=== PATIENT | male | born 1985 | race Caucasian/White ===

== ENCOUNTER → 2016-12-01 | Outpatient (CLI) | payer OTHER ==
[~2016-12-01] MED LIST: AUGM500T34 PO; LORT5TAB PO
--- NOTE | 2016-12-01 13:03 | REP ---
Clinical: Bilateral testicular pain. Technique: Rowell scale and color Doppler evaluation using linear and curved array transducer with color Doppler evaluation. Findings: The testicles and epididymi are relatively normal in contour, size, echogenicity, vascularity and overall appearance/contour. Incidental note is made of 2.0 mm and 2.7 mm right epididymal head cysts and 2.1 mm left epididymal cyst. There is no evidence for intratesticular mass lesion, infectious/inflammatory process, with torsion. No obvious hydroceles or varicoceles are identified. Right testicle measures 4.8 x 2.4 x 3.1 cm cm. Left testicle measures 4.7 x 2.8 x 3.0 cm cm. Impression: Essentially normal scrotal ultrasound. Small epididymal cysts. Signed by Nestor Lopez MD 12/01/2016 12:54 P
[2016-12-01 13:38] LABS: MEAN CORPUSCULAR HEMOGLOBIN 29.3 pg (27.0-33.0); MEAN CORPUSCULAR HGB CONC 33.4 g/dl (32.0-36.5); MEAN CORPUSCULAR VOLUME 87.8 fl (80.0-96.0); RED CELL DISTRIBUTION WIDTH 12.4 % (11.5-14.5); WHITE BLOOD COUNT 7.1 K/mm3 (4.0-10.0)
[2016-12-01 13:55] LABS: ANION GAP 10 MEQ/L (8-16); BLOOD UREA NITROGEN 19 MG/DL (7-18); CARBON DIOXIDE LEVEL 29 MEQ/L (21-32); CHLORIDE LEVEL 102 MEQ/L (98-107); CREATININE FOR GFR 0.98 MG/DL (0.70-1.30); GLOMERULAR FILTRATION RATE > 60.0 (>60); GLUCOSE, FASTING 99 MG/DL (70-105); POTASSIUM SERUM 4.4 MEQ/L (3.5-5.1); SODIUM LEVEL 141 MEQ/L (136-145)
== END ==
LOC: M LAB 12:06
PROVIDERS: ATTEND Family Medicine
DX: N50.819 Testicular pain, unspecified (principal)

== ENCOUNTER → 2016-12-05 | Outpatient (CLI) | payer OTHER ==
[~2016-12-05] MED LIST changes: +ISOVUE-370 76% 100ML VIAL (Q9967) As Ordered ONE
--- NOTE | 2016-12-06 08:20 | REP ---
Clinical: Testicular pain and lower extremity swelling. Technique: Axial contrast enhanced images from the lung bases to the pubic symphysis using 100 ml Isovue 370 intravenous contrast material with coronal and sagittal re-formations. Comparison: 06/29/2015. Findings: The lung bases demonstrate bilateral hilar adenopathy. Liver, spleen, pancreas, gallbladder, bilateral adrenal glands and kidneys are normal. The enteric system is without obstruction or acute inflammatory process with evidence for prior appendectomy. Pelvis demonstrates normal bladder and age appropriate prostate/seminal vesicles. No ascites. No intraperitoneal or retroperitoneal adenopathy. No free air. Vascular structures are normal. Surrounding musculoskeletal structures normal. Impression: 1. Visualized lung bases demonstrate bilateral hilar adenopathy concerning for underlying process including malignancy such as lymphoma. Chest CT and consultation is warranted. 2. Abdomen and pelvis is unremarkable and without acute process. 3. No retroperitoneal adenopathy, ascites or mass lesion. Signed by Nestor Lopez MD 12/06/2016 08:11 A
== END ==
LOC: M RAD 17:05
PROVIDERS: ATTEND Family Medicine
DX: N50.819 Testicular pain, unspecified (principal); M79.89 Other specified soft tissue disorders

== ENCOUNTER → 2016-12-06 | Outpatient (CLI) | payer OTHER ==
--- NOTE | 2016-12-06 12:43 | REP ---
CT of the chest with IV contrast: The patient has CT abdomen pelvis history then identified hilar adenopathy. Scan is performed with IV contrast from lung apices to the diaphragms. There is bulky bilateral hilar adenopathy. There is mediastinal paratracheal, subcarinal and aorticopulmonic window adenopathy. There is no axillary adenopathy. No supraclavicular or thoracic inlet adenopathy. There are no infiltrates or effusions. There are multiple lung nodules as follows: Right lung: Image 26, 9 mm. Image 32 of 9 mm. Image 34, 9 mm. Image 48, 5 mm. Image 49 of 6 mm. Image 54, 6 mm. Image 55, 11 mm. Image 55 of 5 mm. Image 56, 6 mm. Image 50, 86 mm. Image 62, 9 mm. Image 62, 6 mm. Image 66, 11 mm. Image 69, 9 mm Left lung: Image 25, 9 mm. Image 34, 17 mm. Image 37, 5 mm. Image 47, 13 mm. Image 57, 9 mm. Image 67, 5 mm. Image 68, 8 mm. The thoracic aorta is unremarkable. Cardiac size normal. There is no pericardial effusion. Impression: There is mediastinal adenopathy. There is bilateral hilar adenopathy. There are multiple bilateral lung nodules. Otherwise, negative CT study of the chest. Some diagnostic considerations are lymphoma, sarcoidosis, and metastatic disease. Consider PET / CT scan for follow up. Signed by Joni High MD 12/06/2016 12:34 P
== END ==
LOC: M RAD 11:32
PROVIDERS: ATTEND Family Medicine
DX: R59.0 Localized enlarged lymph nodes (principal)

== ENCOUNTER → 2016-12-07 | Outpatient (REF) | payer OTHER ==
[~2016-12-07] MED LIST changes: -ISOVUE-370 76% 100ML VIAL (Q9967) As Ordered ONE
[2016-12-07 18:47] LABS: ALBUMIN 4.2 GM/DL (3.2-5.2); ALBUMIN/GLOBULIN RATIO 1.02 (1.00-1.93); ALKALINE PHOSPHATASE 116 U/L (45-117); ALT/SGPT 63 U/L (12-78); AST/SGOT 23 U/L (15-37); BILIRUBIN,DIRECT < 0.1 MG/DL (0.0-0.2); BILIRUBIN,TOTAL 0.2 MG/DL (0.2-1.0); CREATININE FOR GFR 0.96 MG/DL (0.70-1.30); GLOMERULAR FILTRATION RATE > 60.0 (>60); TOTAL PROTEIN 8.3 GM/DL (6.4-8.2)
[2016-12-07 18:54] LABS: BASO % 0.5 % (0.0-1.0); EOS # 0.3 K/mm3 (0.0-0.50); EOS % 7.2 % (0.0-3.0); LARGE UNSTAINED CELL # 0.1 K/mm3 (0.0-0.4); LARGE UNSTAINED CELL % 2.3 % (0.0-4.0); LYMPH # 0.9 K/mm3 (1.5-4.5); LYMPH % 20.3 % (24.0-44.0); MEAN CORPUSCULAR HGB CONC 33.6 g/dl (32.0-36.5); MEAN CORPUSCULAR VOLUME 86.3 fl (80.0-96.0); MONO # 0.4 K/mm3 (0.0-0.8); MONO % 9.3 % (0.0-5.0); NEUTROPHILS # 2.7 K/mm3 (1.8-7.7); NEUTROPHILS % 60.4 % (36.0-66.0); PLATELET COUNT, AUTOMATED 368 k/mm3 (150-450); RED CELL DISTRIBUTION WIDTH 12.4 % (11.5-14.5); WHITE BLOOD COUNT 4.5 K/mm3 (4.0-10.0)
[2016-12-07 19:20] LABS: ERYTHROCYTE SEDIMENTATION RATE 9 mm/hr (0-15)
== END ==
LOC: M LAB REF 17:18
PROVIDERS: ATTEND Internal Medicine Pulmonary Disease
DX: R91.8 Other nonspecific abnormal finding of lung field (principal)

== ENCOUNTER → 2017-01-26 | Outpatient (CLI) | payer OTHER ==
[2017-01-26 13:31] LABS: ANION GAP 10 MEQ/L (8-16); BLOOD UREA NITROGEN 19 MG/DL (7-18); CALCIUM LEVEL 9.5 MG/DL (8.5-10.1); CARBON DIOXIDE LEVEL 24 MEQ/L (21-32); CHLORIDE LEVEL 105 MEQ/L (98-107); CREATININE FOR GFR 1.13 MG/DL (0.70-1.30); GLOMERULAR FILTRATION RATE > 60.0 (>60); GLUCOSE, FASTING 114 MG/DL (70-105); POTASSIUM SERUM 4.2 MEQ/L (3.5-5.1); SODIUM LEVEL 139 MEQ/L (136-145)
== END ==
LOC: M LAB 12:15
PROVIDERS: ATTEND Family Medicine
DX: R79.89 Other specified abnormal findings of blood chemistry (principal)

== ENCOUNTER → 2017-03-13 | Outpatient (CLI) | payer OTHER ==
--- NOTE | 2017-03-13 21:14 | REP ---
Clinical: Bilateral groin/inguinal pain. Technique: Real time mcghee scale ultrasound examination using linear high frequency transducer. Findings: Directed ultrasound examination to the right groin demonstrates normal soft tissues and no evidence for inguinal hernia. Incidental note is made of a right inguinal lymph node measuring 9.5 x 4.7 x 7.3 mm. Directed ultrasound examination of the left groin demonstrates soft tissue adjacent to the inguinal ring which appears to be muscular by a striated appearance. No definite inguinal hernia is appreciated. A left inguinal lymph node is identified measuring 8.2 x 7.1 x 5.6 mm. Impression: 1. No definite inguinal hernia appreciated. 2. Striated soft tissue adjacent/posterior to the left inguinal ring appears to be muscular in nature. No definite associated hernia. Correlation with physical examination is recommended. Comparison was made to recent CT which suggested a mildly asymmetric but otherwise normal area of soft tissue and musculature at the area in question. Signed by Nestor Lopez MD 03/13/2017 09:06 P
== END ==
LOC: M RAD 10:34
PROVIDERS: ATTEND Internal Medicine Rheumatology
DX: R10.2 Pelvic and perineal pain (principal)

== ENCOUNTER → 2017-04-05 | Outpatient (CLI) | payer OTHER ==
--- NOTE | 2017-04-05 17:26 | REP ---
MRI PELVIS WITHOUT CONTRAST: Multiple sequences obtained in the axial, coronal and sagittal planes. Visualized osseous structures demonstrate normal marrow signal. There is no bone marrow edema or occult fracture. There is no evidence of avascular necrosis of the femoral heads. No joint effusion is seen in either hip. Sacroiliac joints are unremarkable with no sacroiliitis. Visualized intrapelvic structures demonstrate no mass or adenopathy. There is no free fluid in the pelvis. The superficial muscular structures are unremarkable with no abnormal signal. IMPRESSION: Negative MRI pelvis. Signed by Joni Rowell MD 04/06/2017 03:17 P
== END ==
LOC: M RAD 14:16
PROVIDERS: ATTEND Internal Medicine Rheumatology
DX: R10.2 Pelvic and perineal pain (principal)

== ENCOUNTER → 2017-04-16 | Outpatient (REF) | payer OTHER | LOC: M SMT 13:00 | PROVIDERS: ATTEND Nurse Practitioner Women's Health | DX: R10.30 Lower abdominal pain, unspecified (principal); N50.812 Left testicular pain ==

== ENCOUNTER → 2017-06-13 | Outpatient (CLI) | payer OTHER ==
--- NOTE | 2017-06-13 11:45 | REP ---
MR BRAIN WITHOUT CONTRAST: HISTORY: Chronic headache. There are no areas of abnormal signal intensity of the brain. There is no intraparenchymal hemorrhage, infarct, mass or midline shift. The ventricular system is normal in appearance. There is no extracerebral collection. The sinuses are clear. IMPRESSION: There is no intracranial lesion. Signed by Mendez Rodriguez MD 06/13/2017 12:00 P
== END ==
LOC: M RAD 10:23
PROVIDERS: ATTEND Family Medicine
DX: R51 Headache (principal)

== ENCOUNTER → 2017-09-05 | Outpatient (REF) | payer OTHER ==
[2017-09-05 14:10] LABS: BASO % 0.7 % (0.0-1.0); EOS # 0.3 10^3/uL (0.0-0.50); IMMATURE GRANULOCYTE % 0.2 % (0-0); LYMPH % 23.4 % (24.0-44.0); MEAN CORPUSCULAR HGB CONC 33.3 g/dl (32.0-36.5); MEAN CORPUSCULAR VOLUME 87.1 fl (80.0-96.0); MONO # 0.6 10^3/uL (0.0-0.8); MONO % 13.3 % (0.0-5.0); NEUTROPHILS # 2.4 10^3/uL (1.8-7.7); NEUTROPHILS % 55.4 % (36.0-66.0); PLATELET COUNT, AUTOMATED 317 10^3/uL (150-450); RED CELL DISTRIBUTION WIDTH 12.8 % (11.5-14.5); WHITE BLOOD COUNT 4.3 10^3/uL (4.0-10.0)
[2017-09-05 14:34] LABS: VITAMIN B12 LEVEL 462 PG/ML
[2017-09-05 14:35] LABS: ALBUMIN 4.4 GM/DL (3.2-5.2); ALBUMIN/GLOBULIN RATIO 1.63 (1.00-1.93); ALKALINE PHOSPHATASE 61 U/L (45-117); ALT/SGPT 62 U/L (12-78); ANION GAP 5 MEQ/L (8-16); AST/SGOT 23 U/L (7-37); BILIRUBIN,TOTAL 0.3 MG/DL (0.2-1.0); BLOOD UREA NITROGEN 22 MG/DL (7-18); CARBON DIOXIDE LEVEL 28 MEQ/L (21-32); CHLORIDE LEVEL 104 MEQ/L (98-107); CREATININE FOR GFR 0.88 MG/DL (0.70-1.30); FOLATE 13.3 NG/ML; GLOMERULAR FILTRATION RATE > 60.0 (>60); GLUCOSE, FASTING 92 MG/DL (70-105); POTASSIUM SERUM 4.3 MEQ/L (3.5-5.1); SODIUM LEVEL 137 MEQ/L (136-145); TOTAL PROTEIN 7.1 GM/DL (6.4-8.2)
[2017-09-05 14:37] LABS: ERYTHROCYTE SEDIMENTATION RATE 3 mm/hr (0-15)
[2017-09-11 00:06] LABS: VITAMIN E LEVEL 13.4 mg/L (5.3-17.5)
== END ==
LOC: M LABNEURO 13:30
PROVIDERS: ATTEND Psychiatry & Neurology Neurology
DX: R51 Headache (principal)

== ENCOUNTER 2017-11-10 13:40 | Emergency (ER) | payer OTHER ==
[2017-11-10 14:16] LABS: BASO % 0.5 % (0.0-1.0); EOS # 0.2 10^3/uL (0.0-0.50); EOS % 2.6 % (0.0-3.0); HEMATOCRIT 45.7 % (42.0-52.0); HEMOGLOBIN 15.4 g/dl (14.0-18.0); IMMATURE GRANULOCYTE % 0.2 % (0-0); LYMPH # 1.5 10^3/uL (1.5-4.5); LYMPH % 23.9 % (24.0-44.0); MEAN CORPUSCULAR HEMOGLOBIN 28.6 pg (27.0-33.0); MEAN CORPUSCULAR HGB CONC 33.7 g/dl (32.0-36.5); MEAN CORPUSCULAR VOLUME 84.9 fl (80.0-96.0); MONO # 0.5 10^3/uL (0.0-0.8); MONO % 8.5 % (0.0-5.0); NEUTROPHILS % 64.3 % (36.0-66.0); PLATELET COUNT, AUTOMATED 323 10^3/uL (150-450); RED BLOOD COUNT 5.38 10^6/uL (4.30-6.10); RED CELL DISTRIBUTION WIDTH 14.1 % (11.5-14.5); WHITE BLOOD COUNT 6.2 10^3/uL (4.0-10.0)
[2017-11-10] MEDS: KETOROLAC 30 MG/ML VIAL (J1885) IV (14:19)
[2017-11-10] MEDS: ONDANSETRON 4MG/2ML VIAL (J2405) IV (14:19)
[2017-11-10 14:40] LABS: ANION GAP 8 MEQ/L (8-16); BLOOD UREA NITROGEN 21 MG/DL (7-18); CALCIUM LEVEL 8.7 MG/DL (8.5-10.1); CARBON DIOXIDE LEVEL 23 MEQ/L (21-32); CHLORIDE LEVEL 113 MEQ/L (98-107); CREATININE FOR GFR 1.37 MG/DL (0.70-1.30); GLOMERULAR FILTRATION RATE > 60.0 (>60); GLUCOSE, FASTING 113 MG/DL (70-100); POTASSIUM SERUM 4.2 MEQ/L (3.5-5.1); SODIUM LEVEL 144 MEQ/L (136-145)
[2017-11-10] MEDS: METOCLOPRAMIDE INJ 10MG/2ML VIAL (J2765) IV (15:05)
[2017-11-10 15:07] LABS: KETONE, URINE AUTO RFX NEGATIVE (NEGATIVE); LEUKOCYTE ESTERASE UR AUTO RFX NEGATIVE (NEGATIVE); NITRITE, URINE AUTO RFX NEGATIVE (NEGATIVE); RBC, URINE AUTO RFX TNTC /HPF (0-3); SPECIFIC GRAVITY UR AUTO RFX 1.014 (1.002-1.035); SQUAM EPITHELIAL CELL UR AURFX 0 /HPF (0-6); WBC, URINE AUTO RFX 0 /HPF (0-3)
[2017-11-10] MEDS: NS 1,000 ML IV (15:23)
[2017-11-10] MEDS: TAMSULOSIN 0.4 MG CAP PO (15:27)
== END 2017-11-10 16:23 | disposition home or self-care (01) ==
LOC: M ED 13:40
DX: N20.1 Calculus of ureter (principal); Z79.52 Long term (current) use of systemic steroids; Z79.899 Other long term (current) drug therapy; Z87.442 Personal history of urinary calculi; Z87.09 Personal history of other diseases of the respiratory system; Z98.890 Other specified postprocedural states; Z87.891 Personal history of nicotine dependence
CPT/HCPCS: J2405

== ENCOUNTER 2018-01-30 19:20 | Emergency (ER) | payer OTHER ==
[2018-01-30] MEDS: NS 500 ML IV (20:15)
[2018-01-30] MEDS: MORPHINE 10 MG/ML 1ML VIAL (J2270) IV ×3 (20:34→23:00)
[2018-01-30 20:40] LABS: BASO % 0.3 % (0.0-1.0); EOS # 0.1 10^3/uL (0.0-0.50); EOS % 1.3 % (0.0-3.0); HEMATOCRIT 40.9 % (42.0-52.0); HEMOGLOBIN 14.1 g/dl (13.5-17.5); IMMATURE GRANULOCYTE % 0.3 % (0-3.0); LYMPH # 1.2 10^3/uL (1.5-4.5); LYMPH % 12.8 % (24.0-44.0); MEAN CORPUSCULAR HEMOGLOBIN 28.5 pg (27.0-33.0); MEAN CORPUSCULAR HGB CONC 34.5 g/dl (32.0-36.5); MEAN CORPUSCULAR VOLUME 82.8 fl (80.0-96.0); MONO # 0.9 10^3/uL (0.0-0.8); MONO % 9.1 % (0.0-5.0); NEUTROPHILS # 7.1 10^3/uL (1.8-7.7); NEUTROPHILS % 76.2 % (36.0-66.0); PLATELET COUNT, AUTOMATED 278 10^3/uL (150-450); RED BLOOD COUNT 4.94 10^6/uL (4.30-6.10); RED CELL DISTRIBUTION WIDTH 13.4 % (11.5-14.5); WHITE BLOOD COUNT 9.3 10^3/uL (4.0-10.0)
[2018-01-30 20:52] LABS: INR 1.15; PROTHROMBIN TIME 14.9 SECONDS (12.4-14.5)
[2018-01-30 20:53] LABS: PARTIAL THROMBOPLASTIN TIME 28.8 SECONDS (26.8-37.9)
[2018-01-30 21:03] LABS: ANION GAP 7 MEQ/L (8-16); BLOOD UREA NITROGEN 21 MG/DL (7-18); CALCIUM LEVEL 8.8 MG/DL (8.5-10.1); CARBON DIOXIDE LEVEL 24 MEQ/L (21-32); CHLORIDE LEVEL 110 MEQ/L (98-107); CREATININE FOR GFR 1.26 MG/DL (0.70-1.30); GLOMERULAR FILTRATION RATE > 60.0 (>60); GLUCOSE, FASTING 85 MG/DL (70-100); POTASSIUM SERUM 3.5 MEQ/L (3.5-5.1); SODIUM LEVEL 141 MEQ/L (136-145)
[2018-01-30] MEDS ORDERED: ISOVUE-370 76% 100ML VIAL (Q9967) As Ordered (21:15)
[2018-01-30] MEDS: NORCO 5/325MG TABLET (BULK FOR ED) PO (23:00)
== END 2018-01-30 23:26 | disposition home or self-care (01) ==
LOC: M ED 19:20
DX: S42.115A Nondisplaced fracture of body of scapula, left shoulder, initial encounter for closed fracture (principal); S00.83XA Contusion of other part of head, initial encounter; W11.XXXA Fall on and from ladder, initial encounter; Y92.410 Unspecified street and highway as the place of occurrence of the external cause; D86.9 Sarcoidosis, unspecified; K21.9 Gastro-esophageal reflux disease without esophagitis; Z79.899 Other long term (current) drug therapy
CPT/HCPCS: Q9967

== ENCOUNTER → 2018-05-01 | Outpatient (REF) | payer OTHER ==
[2018-05-01 13:39] LABS: TOTAL PROTEIN 7.7 GM/DL (6.4-8.2)
[2018-05-02 11:51] LABS: ALBUMIN 4.74 GM/DL (3.29-5.55); ALBUMIN % 61.6 % (55.8-66.1); ALPHA-1-GLOBULIN % 4.4 % (2.9-4.9); ALPHA-1-GLOBULINS 0.34 GM/DL (0.17-0.41); ALPHA-2-GLOBULINS 0.79 GM/DL (0.42-0.99); ALPHA-2-GLOBULINS % 10.2 % (7.1-11.8); BETA-1-GLOBULINS 0.47 GM/DL (0.28-0.60); BETA-1-GLOBULINS % 6.1 % (4.7-7.2); BETA-2-GLOBULINS 0.45 GM/DL (0.19-0.55); BETA-2-GLOBULINS % 5.8 % (3.2-6.5); GAMMA GLOBULIN % 11.9 % (11.1-18.8); GAMMA GLOBULINS 0.92 GM/DL (0.65-1.58)
[2018-05-06 14:14] LABS: CERULOPLASMIN 22.1 mg/dL (16.0-31.0); COPPER PLASMA 97 ug/dL (72-166); MERCURY LEVEL None Detected ug/L (0.0-14.9)
[2018-05-06 14:14] LABS: LEAD BLOOD ADULT <1 ug/dL (0-19)
== END ==
LOC: M LABNEURO 08:06
DX: G62.9 Polyneuropathy, unspecified (principal)
CPT/HCPCS: 82525

== ENCOUNTER → 2018-07-29 | Outpatient (CLI) | payer OTHER | LOC: M RAD 07:54 | DX: R94.5 Abnormal results of liver function studies (principal) | CPT/HCPCS: 76700 ==

== ENCOUNTER → 2018-09-03 | Outpatient (CLI) | payer OTHER ==
[2018-09-03 16:57] LABS: BASO # 0.1 10^3/uL (0.0-0.2); BASO % 0.8 % (0.0-1.0); EOS # 0.2 10^3/uL (0.0-0.50); EOS % 2.7 % (0.0-3.0); HEMATOCRIT 43.9 % (42.0-52.0); HEMOGLOBIN 14.5 g/dl (13.5-17.5); IMMATURE GRANULOCYTE % 0.2 % (0-3.0); LYMPH # 1.9 10^3/uL (1.5-4.5); LYMPH % 31.3 % (24.0-44.0); MEAN CORPUSCULAR HEMOGLOBIN 29.8 pg (27.0-33.0); MEAN CORPUSCULAR VOLUME 90.1 fl (80.0-96.0); MONO # 0.7 10^3/uL (0.0-0.8); MONO % 11.2 % (0.0-5.0); NEUTROPHILS # 3.2 10^3/uL (1.8-7.7); NEUTROPHILS % 53.8 % (36.0-66.0); PLATELET COUNT, AUTOMATED 300 10^3/uL (150-450); RED BLOOD COUNT 4.87 10^6/uL (4.30-6.10); RED CELL DISTRIBUTION WIDTH 12.6 % (11.5-14.5)
[2018-09-03 17:02] LABS: ALBUMIN 4.1 GM/DL (3.2-5.2); ALBUMIN/GLOBULIN RATIO 1.32 (1.00-1.93); ALKALINE PHOSPHATASE 87 U/L (45-117); ALT/SGPT 53 U/L (12-78); ANION GAP 6 MEQ/L (8-16); AST/SGOT 21 U/L (7-37); BILIRUBIN,DIRECT < 0.1 MG/DL (0.0-0.2); BILIRUBIN,TOTAL 0.2 MG/DL (0.2-1.0); BLOOD UREA NITROGEN 16 MG/DL (7-18); CALCIUM LEVEL 8.9 MG/DL (8.5-10.1); CARBON DIOXIDE LEVEL 30 MEQ/L (21-32); CHLORIDE LEVEL 105 MEQ/L (98-107); CREATININE FOR GFR 1.17 MG/DL (0.70-1.30); GLOMERULAR FILTRATION RATE > 60.0 (>60); GLUCOSE, FASTING 96 MG/DL (70-100); IMMUNOGLOBULIN A 237 MG/DL (70-400); SODIUM LEVEL 141 MEQ/L (136-145); TOTAL PROTEIN 7.2 GM/DL (6.4-8.2)
[2018-09-07 00:24] LABS: ANTINUCLEAR ANTIBODIES DIRECT Negative (Negative); ENDOMYSIAL ABY IgA Negative (Negative); TISSUE TRANSGLUTAMINASE IgA <2 U/mL (0-3); TISSUE TRANSGLUTAMINASE IgG <2 U/mL (0-5)
[2018-09-11 12:42] LABS: FIBROSPECT1 SEE SEPARATE REPORT
== END ==
LOC: M WUC 13:50
DX: R93.3 Abnormal findings on diagnostic imaging of other parts of digestive tract (principal)
CPT/HCPCS: 82248

== ENCOUNTER → 2018-09-13 | Outpatient (CLI) | payer OTHER ==
[~2018-09-13] MED LIST changes: -AUGM500T34 PO; +GASTROGRAFIN SOLUTION 30ML (Q9963) As Ordered; +ISOVUE-370 76% 100ML VIAL (Q9967) As Ordered; -LORT5TAB PO
== END ==
LOC: M RAD 08:44
DX: R93.3 Abnormal findings on diagnostic imaging of other parts of digestive tract (principal); R16.1 Splenomegaly, not elsewhere classified
CPT/HCPCS: Q9963

== ENCOUNTER → 2019-07-14 | Outpatient (REF) | payer OTHER ==
[~2019-07-14] MED LIST changes: +AMIT75TA PO; +AUGM500T34 PO; +FLOM0.4C39 PO; -GASTROGRAFIN SOLUTION 30ML (Q9963) As Ordered; +HYDR200T3; -ISOVUE-370 76% 100ML VIAL (Q9967) As Ordered; +LORT5TAB PO; +NAPR-837 PO; +OMEP1CAP73 PO; +PRED5PAK PO; +TOPA50TA8 PO; +VICO5TAB17 PO; +ZOFR4TAB14 PO
[2019-07-14 12:14] LABS: ALT/SGPT 55 U/L (12-78); BILIRUBIN,TOTAL 0.3 MG/DL (0.2-1.0); BLOOD UREA NITROGEN 16 MG/DL (7-18); CALCIUM LEVEL 9.1 MG/DL (8.5-10.1); CARBON DIOXIDE LEVEL 31 MEQ/L (21-32); CHLORIDE LEVEL 103 MEQ/L (98-107); CREATININE FOR GFR 1.13 MG/DL (0.70-1.30); GLOMERULAR FILTRATION RATE > 60.0 (>60); GLUCOSE, FASTING 95 MG/DL (70-100); POTASSIUM SERUM 4.1 MEQ/L (3.5-5.1); SODIUM LEVEL 139 MEQ/L (136-145); TOTAL PROTEIN 7.3 GM/DL (6.4-8.2)
== END ==
LOC: M LABDRAWC 11:25
PROVIDERS: ATTEND Physician Assistant
DX: D86.0 Sarcoidosis of lung (principal)

== ENCOUNTER 2021-10-13 15:13 | Inpatient (IN) | payer OTHER ==
[~2021-10-13] VITALS: Ht 180.3 cm; Wt 93.2 kg
[~2021-10-13 15:13] MED LIST changes: +dexameTHASONE 4 MG/ML 1ML VIAL (J1100 PER 1MG) IV SCH
[2021-10-13] MEDS ORDERED: ONDANSETRON 4MG/2ML VIAL IV ONE (15:40)
[2021-10-13] MEDS ORDERED: GI COCKTAIL 50ML BTL(HYOSCYAMINE/MAALOX/LIDOCAINE VISCOUS)(1:3:1) PO ONE (15:40)
[2021-10-13] MEDS ORDERED: MORPHINE 2 MG/ML 1ML VIAL (J2270) IV ONE (15:40)
--- NOTE | 2021-10-13 15:59 | REP ---
INDICATION: Coronavirus workup. COMPARISON: None. TECHNIQUE: Portable FINDINGS: The technique utilized in obtaining the radiograph has magnified the cardiac silhouette and accentuated the interstitial markings. There is a focal opacity in the right upper lobe region. The heart is not enlarged. The pleural angles are sharp. The osseous structures are within normal limits. IMPRESSION: Possible developing right upper lobe pneumonia. Follow-up is recommended. <Electronically signed by Darryl Mckeon > 10/13/21 1906
[2021-10-13 16:17] LABS: BASO % 0.3 % (0.0-1.0); EOS % 1.4 % (0.0-3.0); HEMATOCRIT 46.8 % (42.0-52.0); HEMOGLOBIN 15.9 g/dl (13.5-17.5); LYMPH # 0.7 10^3/uL (1.5-5.0); LYMPH % 24.1 % (24.0-44.0); MEAN CORPUSCULAR HEMOGLOBIN 29.3 pg (27.0-33.0); MEAN CORPUSCULAR VOLUME 86.2 fl (80.0-96.0); MONO # 0.3 10^3/uL (0.0-0.8); MONO % 11.5 % (2.0-8.0); NEUTROPHILS # 1.8 10^3/uL (1.5-8.5); NEUTROPHILS % 62.4 % (36.0-66.0); PLATELET COUNT, AUTOMATED 211 10^3/uL (150-450); RED BLOOD COUNT 5.43 10^6/uL (4.30-6.10); WHITE BLOOD COUNT 2.9 10^3/uL (4.0-10.0)
[2021-10-13 16:49] LABS: ALBUMIN 4.1 GM/DL (3.2-5.2); ALT/SGPT 140 U/L (12-78); BILIRUBIN,TOTAL 0.2 MG/DL (0.2-1.0); BLOOD UREA NITROGEN 14 MG/DL (7-18); C REACTIVE PROTEIN QUANTITATIV 0.82 MG/DL (0.00-0.30); CALCIUM LEVEL 9.2 MG/DL (8.5-10.1); CARBON DIOXIDE LEVEL 29 MEQ/L (21-32); CHLORIDE LEVEL 100 MEQ/L (98-107); CREATININE FOR GFR 1.01 MG/DL (0.70-1.30); GLOMERULAR FILTRATION RATE > 60.0 (>60); GLUCOSE, FASTING 122 MG/DL (70-100); POTASSIUM SERUM 5.1 MEQ/L (3.5-5.1); SODIUM LEVEL 135 MEQ/L (136-145); TOTAL PROTEIN 8.1 GM/DL (6.4-8.2)
[2021-10-13] MEDS ORDERED: ISOVUE-370 76% 100ML VIAL As Ordered ONE (16:53)
--- NOTE | 2021-10-13 18:20 | ECGEPIP ---
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
--- NOTE | 2021-10-13 18:39 | REPVR ---
PROCEDURE INFORMATION: Exam: CTA Chest With Contrast Exam date and time: 10/13/2021 5:12 PM Age: 36 years old Clinical indication: Shortness of breath; Additional info: SOB RO pe TECHNIQUE: Imaging protocol: Computed tomographic angiography of the chest with contrast. 3D rendering (Not supervised by radiologist): MIP and/or 3D reconstructed images were created by the technologist. Radiation optimization: All CT scans at this facility use at least one of these dose optimization techniques: automated exposure control; mA and/or kV adjustment per patient size (includes targeted exams where dose is matched to clinical indication); or iterative reconstruction. Contrast material: ISOVUE 370; Contrast volume: 75 ml; Contrast route: INTRAVENOUS (IV); COMPARISON: CT Chest with contrast 01/30/2018 9:44 PM FINDINGS: Pulmonary arteries: There is opacification of the pulmonary arteries with no evidence of pulmonary embolus. Aorta: There is opacification of the aorta which appears intact. Trachea: Normal appearing trachea. Lungs: There is a 7.5 x 3.6 triangular area of interstitial and alveolar infiltrate right mid lung field abutting the pleural surface. There are scattered small areas of infiltrate at the right apical portion of the lung. There is a 3.5 cm x 3.6 cm wedge-shaped area of interstitial and alveolar infiltrate at the left upper lung abutting the pleural surface. There are small round areas of infiltrate in the left lung especially the left lower lung field. The This is consistent with areas of pneumonic infiltrate including COVID-19 pneumonia. Pleural spaces: There is no evidence of pneumothorax or pleural effusion. Heart: The heart is top-normal in size and there is no pericardial effusion. Lymph nodes: To 1.3 cm probable lymph node in the right infrahilar region. Lymphoid tissue is noted in the hilar regions bilaterally. Small lymph nodes are in the parahilar regions bilaterally. Bones/joints: There is no evidence of fracture. IMPRESSION: Areas of interstitial and alveolar infiltrate throughout both lungs consistent with pneumonic infiltrates including COVID-19 pneumonia. It would be important to have follow-up films to see that these areas resolve and to exclude underlying nodules Enlarged hilar lymph nodes. Electronically signed by: Matt Rogers On 10/13/2021 18:38:25 PM
--- NOTE | 2021-10-13 19:34 | ED PDOC ---
Post-Departure Follow-Up cta chest faxed to dr kingsley for fu Eliseo Arita MD Oct 13, 2021 19:34
[2021-10-13] MEDS ORDERED: MOM 30ML SUSPENSION UDC PO PRN (20:05)
[2021-10-13] MEDS ORDERED: MAALOX 30 ML SUSP *UDC PO PRN (20:05)
[2021-10-13] MEDS ORDERED: ACETAMINOPHEN TAB 650MG DOSE (2X325MG) PO PRN (20:05)
[2021-10-13] MEDS ORDERED: NS 1,000 ML IV SCH ×2 (20:30→21:00)
--- NOTE | 2021-10-13 20:40 | HPEPDOC ---
General Date of Admission Date of Service: Oct 13, 2021 Attending Physician: ROSA MAHER MD Chief Complaint The patient is a 36-year-old male admitted with a reason for visit of Chest Pain. Source: Patient Exam Limitations: No limitations Timing/Duration: Other (Since last 5 days) Severity: Moderate Associated Symptoms: Other (Chest pain cough) History of Present Illness 36 years old white male with past medical history of sarcoidosis, quit smoking about few months ago his had become positive for Covid on Sunday but he was unable to get himself tested secondary to [place] hence came in today with chief complaints of sudden onset of pressure-like chest pain midsternal nonradiating not associated with any the symptoms such as shortness of breath nausea vomiting not relieved with any medication or position not exacerbated by food coughing etc. On further work-up patient found to have Covid positive status with bilateral interstitial pneumonia. Note: Patient is not vaccinated for COVID-19 Home Medications Scheduled Omeprazole (Omeprazole) 20 Mg Cap, 2 CAP PO DAILY, (Reported) Allergies Coded Allergies: No Known Allergies (Verified Allergy, Unknown, 10/13/21) Past Medical History Medical History Sarcoidosis Surgical History None Family History Family history reviewed noncontributory Social History * Smoker: other (Quit smoking 4 months ago) Alcohol: Denies Drugs: denies A-FIB/CHADSVASC A-FIB History Current/History of A-Fib/PAF?: No Review of Systems Constitutional: Denies: Chills, Fever, Malaise, Night Sweats, Weakness, Fatigue, Weight Loss, Lethargy, Other Eyes: Denies: Pain, Vision change, Conjunctivae inflammation, Eyelid inflammation, Redness, Other Skin: Denies: Rash, Lesions, Jaundice, Bruising, Itching, Dry, Breakdown, Nail Changes, Other Pulmonary: Denies: Dyspnea, Cough, Pleuritic Chest Pain, Other Symptoms Cardiovascular: Reports: Chest Pain Gastrointestinal: Denies: Nausea, Vomiting, Abdominal Pain, Diarrhea, Constipation, Melena, Hematochezia, Other Symptoms Genitourinary: Denies: Dysuria, Frequency, Incontinence, Hematuria, Retention, Other Symptoms Hematologic: Denies: Bruising, Bleeding Excessively, Petecchia, Purpura, Enlarged Lymph Nodes, Other Hematologic Endocrine: Denies: Polydipsia, Polyphagia, Polyuria, Heat Intolerance, Cold Intolerance, Other Endocrine Sx Musculoskeletal: Denies: Neck Pain, Back Pain, Shoulder Pain, Arm Pain, Hand Pain, Leg Pain, Foot Pain, Joint Pain, Muscle Pain, Spasms, Other Symptoms Neurological: Denies: Weakness, Numbness, Incoordination, Change in speech, Confusion, Seizures, Other Symptoms Psych: Denies: Mood Normal, Anxiety, Depression, Memory Issues, Thoughts of Self Harm, Anger, Thoughts of Harming Other, Other Psych Physical Examination General Exam: Positive: Alert, Cooperative Eye Exam: Positive: Conjunctiva & lids normal ENT Exam: Positive: Atraumatic, Mucous membr. moist/pink Neck Exam: Positive: Supple Chest Exam: Positive: Other (Decreased breath sounds with bilateral crackles) Heart Exam: Positive: Rate Normal, Normal S1, Normal S2 Abdomen Exam: Positive: Normal bowel sounds, Soft Extremity Exam: Positive: Other (No clubbing sinus edema) Skin Exam: Positive: Nl turgor and temperature Neuro Exam: Positive: Normal Gait, Normal Speech Psych Exam: Positive: Mental status NL, Mood NL Vital Signs Vital Signs Date Time Temp Pulse Resp B/P (MAP) Pulse Ox O2 Delivery O2 Flow Rate FiO2 10/13/21 19:43 103 95 10/13/21 16:16 20 Room Air 10/13/21 15:29 123/80 (94) 10/13/21 15:13 98.3 Laboratory Data Labs 24H Laboratory Tests 2 10/13/21 15:47: Immature Granulocyte % (Auto) 0.3, Neutrophils (%) (Auto) 62.4, Lymphocytes (%) (Auto) 24.1, Monocytes (%) (Auto) 11.5H, Eosinophils (%) (Auto) 1.4, Basophils (%) (Auto) 0.3, Neutrophils # (Auto) 1.8, Lymphocytes # (Auto) 0.7L, Monocytes # (Auto) 0.3, Eosinophils # (Auto) 0.0, Basophils # (Auto) 0.0, Nucleated Red Blood Cells % (auto) 0.0, Anion Gap 6L, Glomerular Filtration Rate > 60.0, Calcium Level 9.2, Total Bilirubin 0.2, Aspartate Amino Transf (AST/SGOT) 76H, Alanine Aminotransferase (ALT/SGPT) 140H, Alkaline Phosphatase 112, C-Reactive Protein, Quantitative 0.82H, Total Protein 8.1, Albumin 4.1, Albumin/Globulin Ratio 1.0 10/13/21 15:48: Lactic Acid Level 2.2*H 10/13/21 15:55: POC Troponin I (Misc) 0.00 CBC/BMP Laboratory Tests 10/13/21 15:47 Microbiology Microbiology 10/13/21 Blood Culture, Received Pending 10/13/21 Blood Culture, Received Pending Assessment/Plan 36 years old white male with past medical history of sarcoidosis, quit smoking about few months ago his had become positive for Covid on Sunday but he was unable to get himself tested secondary to [place] hence came in today with chief complaints of sudden onset of pressure-like chest pain midsternal nonr adiating not associated with any the symptoms such as shortness of breath nausea vomiting not relieved with any medication or position not exacerbated by food coughing etc. On further work-up patient found to have Covid positive status with bilateral interstitial pneumonia. Note: Patient is not vaccinated for COVID-19 EKG shows normal sinus rhythm left axis deviation nonspecific ST-T changes Chest x-ray shows right upper lobe pneumonia CT of chest shows bilateral interstitial pneumonia WBC count 2.9 hemoglobin 15.9 hematocrit 46.8 platelets 211 Electrolytes are normal with BUN of 14 creatinine 1.01 LFTs are slightly elevated AST 71 ALT 140, lactic acid 2.2 CRP 0.62 Vital signs on admission temperature 98.3, pulse 86 respiratory rate 20 blood pressure 138/70 pulse ox 100% on room air #1 Covid positive status with bilateral Covid pneumonia, rule out secondary bacterial community-acquired pneumonia #2 history of pulmonary sarcoidosis Admit patient to Med[facility] floor with Contac and droplet isolation IV fluid normal saline 100 cc/h Start remdesivir and Versed neb as patient has a normal renal functions Start dexamethasone 6 mg IV Start Rocephin 1 g IV daily and Zithromax 5 mg p.o. daily Pro calcitonin has been ordered in a.m. labs also have been ordered Oxygen support to keep pulse ox more than 94% Depending on patient response to above therapy hopefully can be discharged soon DVT prophylaxis with Lovenox Diet is regular Activity as tolerated Problems (1) Pneumonia due to COVID-19 virus Status: Acute Plan / VTE VTE Prophylaxis Ordered?: Yes ROSA MAHER MD Oct 13, 2021 20:40
[2021-10-13] MEDS ORDERED: ALBUTEROL 90 MCG/ACT 8GM HFA INHALER INH PRN (20:55)
[2021-10-13] MEDS ORDERED: AZITHROMYCIN 250MG TABLET PO SCH (21:00)
[2021-10-13] MEDS ORDERED: ENOXAPARIN 40MG/0.4ML SYRINGE (J1650 PER 10MG) SC SCH (21:00)
[2021-10-13] MEDS ORDERED: cefTRIAXone SOD 1 GM in D5W MINI-BAG PLUS 50 ML IV SCH (21:00)
[2021-10-13] MEDS: DOCUSATE SODIUM 100MG CAPSULE PO SCH (21:00)
[2021-10-13 21:08] LABS: BILIRUBIN,DIRECT < 0.1 MG/DL (0.0-0.2); FERRITIN 403 NG/ML (26-388); MAGNESIUM LEVEL 1.9 MG/DL (1.8-2.4); NT-PRO BNP 9 PG/ML (<125)
[2021-10-13 21:49] LABS: INR 1.03; PARTIAL THROMBOPLASTIN TIME 31.9 SECONDS (25.9-37.0); PROTHROMBIN TIME 13.9 SECONDS (12.7-14.5)
[2021-10-13 21:52] LABS: D-DIMER QUANT 331.91 ng/ml (<500)
[2021-10-13] MEDS ORDERED: REMDESIVIR 200 MG in NS 250 ML IV ONE (23:00)
[2021-10-14] MEDS ORDERED: SODIUM CHLORIDE 0.9% INJ 10 ML SYR IV ONE (01:00)
[2021-10-14 08:28] LABS: BASO % 0.4 % (0.0-1.0); EOS % 0.9 % (0.0-3.0); HEMATOCRIT 43.7 % (42.0-52.0); HEMOGLOBIN 14.6 g/dl (13.5-17.5); LYMPH % 44.4 % (24.0-44.0); MEAN CORPUSCULAR HEMOGLOBIN 29.4 pg (27.0-33.0); MEAN CORPUSCULAR HGB CONC 33.4 g/dl (32.0-36.5); MEAN CORPUSCULAR VOLUME 88.1 fl (80.0-96.0); MONO # 0.4 10^3/uL (0.0-0.8); MONO % 15.1 % (2.0-8.0); NEUTROPHILS % 38.8 % (36.0-66.0); PLATELET COUNT, AUTOMATED 179 10^3/uL (150-450); RED BLOOD COUNT 4.96 10^6/uL (4.30-6.10); WHITE BLOOD COUNT 2.3 10^3/uL (4.0-10.0)
[2021-10-14] MEDS ORDERED: IBUPROFEN 600MG TAB PO ONE (08:30)
[2021-10-14 08:59] LABS: ALBUMIN 3.5 GM/DL (3.2-5.2); ALT/SGPT 186 U/L (12-78); BILIRUBIN,DIRECT < 0.1 MG/DL (0.0-0.2); BILIRUBIN,TOTAL 0.2 MG/DL (0.2-1.0); BLOOD UREA NITROGEN 15 MG/DL (7-18); CALCIUM LEVEL 8.4 MG/DL (8.5-10.1); CARBON DIOXIDE LEVEL 31 MEQ/L (21-32); CHLORIDE LEVEL 103 MEQ/L (98-107); GLOMERULAR FILTRATION RATE > 60.0 (>60); GLUCOSE, FASTING 100 MG/DL (70-100); MAGNESIUM LEVEL 2.2 MG/DL (1.8-2.4); NEUTROPHILS # 0.9 10^3/uL (1.5-8.5); SODIUM LEVEL 138 MEQ/L (136-145); TOTAL PROTEIN 7.5 GM/DL (6.4-8.2)
[2021-10-14] MEDS: DOCUSATE SODIUM 100MG CAPSULE PO SCH (08:59)
[2021-10-14] MEDS ORDERED: BARICITINIB 2MG TABLET (OLUMIANT) FOR EUA PO SCH (09:00)
[2021-10-14] MEDS ORDERED: MUCI1TAB16 PO (09:19)
[2021-10-14] MEDS ORDERED: LEVO500T3 PO (09:23)
[2021-10-14 10:45] VITALS: BP 117/74
--- NOTE | 2021-10-14 15:37 | DS.PDOC ---
Discharge Summary General Date of Admission Oct 13, 2021 at 20:04 Date of Discharge 10/14/2021 Discharge Summary PROCEDURES PERFORMED DURING STAY: [None]. ADMITTING DIAGNOSES / DISCHARGE DIAGNOSES: Chest pressure - likely 2/2 COVID19 COVID19 Sarcoidosis Leukopenia - possibly 2/2 acute viral illness Transaminitis - possibly 2/2 acute viral illness GERD DVT prophylaxis COMPLICATIONS/CHIEF COMPLAINT: Chest pain HISTORY OF PRESENT ILLNESS: Patient is a 36 -year-old male with a PMHx of Sarcoidosis, who presented to the ER with complaints of chest pressure. Patient had reported that on Sunday (10/07) he was experiencing some cough and mild shortness of breath. He ultimately got tested on Sunday (10/09) and was noted to be positive. Patient reported that on the day of admission, 10/13. He was experiencing chest pressure that prompted him to come to the emergency room for further evaluation. In the emergency room, patient had a CT angiogram of his chest completed that did not reveal any evidence of pulmonary embolism. An electrocardiogram that revealed normal sinus rhythm without evidence of ischemia and at least 4 different cardiac markers which have all been negative. Patient was admitted to the hospitalist service for further evaluation and treatment. HOSPITAL COURSE: Chest pressure - likely 2/2 COVID19 - Patient has reported some improvement of his discomfort - He remains hemodynamically stable and afebrile - Imaging noted below, without any evidence of pulmonary emboli - EKG reviewed without any ischemic changes; troponin trend 4 negative - c/w Levofloxacin on discharge - Will have outpatient follow-up with primary care provider within the next 7 days COVID19 - Patient is currently not hypoxic - Will stop Remdesivir / Dexamethasone / Baricitinib; indication for this would be hypoxia - Since patient is not hypoxic he would benefit from monoclonal antibody infusion and the window for which will soon be closing - Discussed risks and benefits of monoclonal antibody infusion and uncertainty with omicron variant; patient reports that he would like to proceed with monoclonal antibody infusion to help improve recovery sooner - Consented patient and he has signed consent paperwork Sarcoidosis - Patient reports that he follows with a sales account director in [place] - He is currently not on any medications Leukopenia - possibly 2/2 acute viral illness - See above - Will c/w antibiotics - Will have outpatient follow up with PCP for additional lab work after resolution of acute illness Transaminitis - possibly 2/2 acute viral illness - Slight elevation on admission, increased after Remdesivir use - Discontinued Remdesivir / Doxycycline / Dexamethasone - Patient has not experience any abdominal pain / nausea / vomiting - Physical without any tenderness - Patient has been advised to refrain from the use of alcohol / excessive use of Tylenol - Will have outpatient follow up with PCP for further evaluation and to avoid delay of administration of monoclonal antibodies GERD - c/w Omeprazole DVT prophylaxis - c/w Lovenox DISCHARGE MEDICATIONS: Please see below. ALLERGIES: Please see below. PHYSICAL EXAMINATION ON DISCHARGE: Vitals (See below) General: Lying in bed, appears comfortable, AAOx3 HEENT: NC, AT CVS: +S1S2 Lungs: Fair air entry b/l, no appreciable wheezing, rales or rhonchi Abdomen: Soft, ND, NT Extremities: No evidence of edema, - Calf tenderness LABORATORY DATA: Please see below. IMAGING: CXR 10/13: Possible developing right upper lobe pneumonia. Follow-up is recommended. CTA chest 10/13: Areas of interstitial and alveolar infiltrate throughout both lungs consistent with pneumonic infiltrates including COVID-19 pneumonia. It would be important to have follow-up films to see that these areas resolve and to exclude underlying nodules Enlarged hilar lymph nodes. ACTIVITY: [As tolerated]. DISCHARGE PLAN: Follow up with PCP within 7 days Remain complaint with treatment plan and medications Return to the ER if you experience any problems DISPOSITION: Home health services DISCHARGE CONDITION: [Stable]. TIME SPENT ON DISCHARGE: 35 minutes Vital Signs/I&Os Vital Signs Date Time Temp Pulse Resp B/P (MAP) Pulse Ox O2 Delivery O2 Flow Rate FiO2 10/14/21 10:53 97.7 10/14/21 10:45 76 117/74 (88) 94 10/14/21 09:00 Room Air 10/13/21 16:16 20 Laboratory Data Labs 24H Laboratory Tests 2 10/13/21 15:47: Immature Granulocyte % (Auto) 0.3, Neutrophils (%) (Auto) 62.4, Lymphocytes (%) (Auto) 24.1, Monocytes (%) (Auto) 11.5H, Eosinophils (%) (Auto) 1.4, Basophils (%) (Auto) 0.3, Neutrophils # (Auto) 1.8, Lymphocytes # (Auto) 0.7L, Monocytes # (Auto) 0.3, Eosinophils # (Auto) 0.0, Basophils # (Auto) 0.0, Nucleated Red Blood Cells % (auto) 0.0, Anion Gap 6L, Glomerular Filtration Rate > 60.0, Calcium Level 9.2, Magnesium Level 1.9, Ferritin 403H, Total Bilirubin 0.2, Direct Bilirubin < 0.1, Aspartate Amino Transf (AST/SGOT) 76H, Alanine Aminotransferase (ALT/SGPT) 140H, Alkaline Phosphatase 112, C-Reactive Protein, Quantitative 0.82H, EX-Xpr-Z-Type Natriuretic Peptide 9, Total Protein 8.1, Albumin 4.1, Albumin/Globulin Ratio 1.0 10/13/21 15:48: Lactic Acid Level 2.2*H 10/13/21 15:55: POC Troponin I (Misc) 0.00 10/13/21 21:26: Prothrombin Time 13.9, Prothromb Time International Ratio 1.03, Activated Partial Thromboplast Time 31.9, Fibrinogen 362, D-Dimer, Quantitative 331.91, Lactic Acid Followup at 4 Hours 0.8, Troponin I High Sensitivity 3.0 10/14/21 02:42: Troponin I High Sensitivity 3.0 10/14/21 08:13: Troponin I High Sensitivity 3.0, Immature Granulocyte % (Auto) 0.4, Neutrophils (%) (Auto) 38.8, Lymphocytes (%) (Auto) 44.4H, Monocytes (%) (Auto) 15.1H, Eosinophils (%) (Auto) 0.9, Basophils (%) (Auto) 0.4, Neutrophils # (Auto) 0.9L, Lymphocytes # (Auto) 1.0L, Monocytes # (Auto) 0.4, Eosinophils # (Auto) 0.0, Basophils # (Auto) 0.0, Nucleated Red Blood Cells % (auto) 0.0, Anion Gap 4L, Glomerular Filtration Rate > 60.0, Calcium Level 8.4L, Magnesium Level 2.2, Total Bilirubin 0.2, Direct Bilirubin < 0.1, Aspartate Amino Transf (AST/SGOT) 109H, Alanine Aminotransferase (ALT/SGPT) 186H, Alkaline Phosphatase 110, Total Protein 7.5, Albumin 3.5, Albumin/Globulin Ratio 0.9, Procalcitonin <0.05 CBC/BMP Laboratory Tests 10/13/21 15:47 10/14/21 08:13 Microbiology Microbiology 10/13/21 Blood Culture, Received Pending 10/13/21 Blood Culture, Received Pending Discharge Medications Scheduled Guaifenesin (Mucinex) 1,200 Mg Tab.er.12h, 1 TAB PO BID for cough Levofloxacin (Levofloxacin) 500 Mg Tablet, 1 TAB PO DAILY Omeprazole (Omeprazole) 20 Mg Cap, 2 CAP PO DAILY, (Reported) Allergies Coded Allergies: No Known Allergies (Verified Allergy, Unknown, 10/13/21) GENA SOLIMAN MD Oct 14, 2021 15:37
[2021-10-14] MEDS ORDERED: REMDESIVIR 100 MG in NS 250 ML IV SCH (21:00)
[2021-10-14] MEDS ORDERED: SODIUM CHLORIDE 0.9% INJ 10 ML SYR IV SCH (22:00)
--- NOTE | 2021-10-15 08:52 | ECGEPIP ---
[facility] Test Date: 2021-10-14 Pat Name: PRAKASH ROJAS Department: Room: [place] [address] Gender: Male Director Of Strategic Programs: TORSTEN : 1985 Requested By: GENA SOLIMAN Order Number: [id number] Reading MD: Lazarus Hrut Measurements Intervals [place] Rate: 73 P: 42 [place]: 220 QRS: -26 QRSD: 84 T: 23 QT: 380 QTc: 418 Interpretive Statements Sinus rhythm with 1st degree AV block LAD Compared to prior tracing of 10/13/2021, IN interval is longer Electronically Signed on 10-15-2021 8:52:42 EST by Lazarus Hurt
== END 2021-10-14 10:55 | disposition home health service (06) | DRG 137 ==
LOC: M ED 15:13 → M ED INP 20:04
PROVIDERS: ADMIT Internal Medicine; ATTEND Internal Medicine
PROC: 3E0333Z Introduction of Anti-inflammatory into Peripheral Vein, Percutaneous Approach (ICD-10-PCS; principal; 2021-10-13)
PROC: XW033E5 Introduction of Remdesivir Anti-infective into Peripheral Vein, Percutaneous Approach, New Technology Group 5 (ICD-10-PCS; 2021-10-13)
DX: U07.1 COVID-19 (principal); J12.82 Pneumonia due to coronavirus disease 2019; D86.0 Sarcoidosis of lung; Z87.891 Personal history of nicotine dependence; Z79.899 Other long term (current) drug therapy; R74.01 Elevation of levels of liver transaminase levels; K21.9 Gastro-esophageal reflux disease without esophagitis

== ENCOUNTER 2021-10-13 20:09 | Outpatient (CLI) | payer OTHER ==
[~2021-10-13 20:09] MED LIST changes: -dexameTHASONE 4 MG/ML 1ML VIAL (J1100 PER 1MG) IV SCH
[2021-10-14] MEDS ORDERED: NS 1,000 ML IV SCH (08:05)
[2021-10-14] MEDS ORDERED: diphenhydrAMINE 50MG/ML VIAL (J1200) IV PRN (08:05)
[2021-10-14] MEDS ORDERED: methylPREDNISolone 125MG 2ML VIAL IV PRN (08:05)
[2021-10-14] MEDS ORDERED: ALBUTEROL 90 MCG/ACT 8GM HFA INHALER INH PRN (08:05)
[2021-10-14] MEDS ORDERED: EPINEPHrine INJ 1 MG/ML 1ML AMP IM PRN (08:05)
[2021-10-14] MEDS ORDERED: ACETAMINOPHEN TAB 650MG DOSE (2X325MG) PO PRN (08:05)
[2021-10-14] MEDS ORDERED: ALBUTEROL SULFATE 2.5 MG/0.5 ML INH NEB SOLN INH PRN (08:05)
[2021-10-14] MEDS ORDERED: MUCI1TAB16 PO (09:19)
[2021-10-14] MEDS ORDERED: LEVO500T3 PO (09:23)
[2021-10-14 11:36] VITALS: BP 117/75
[2021-10-14] MEDS ORDERED: BAMLANIVIMAB 700 MG, ETESEVIMAB 1,400 MG in NS 250 ML IV ONE (12:00)
[2021-10-14 12:06] VITALS: BP 117/65
[2021-10-14 12:36] VITALS: BP 104/70
[2021-10-14 13:36] VITALS: BP 117/69
== END 2021-10-14 13:36 | disposition home or self-care (01) ==
LOC: M OPCLI4 20:09
PROVIDERS: ATTEND Internal Medicine
DX: U07.1 COVID-19 (principal)

== ENCOUNTER → 2021-10-21 | Outpatient (REF) | payer OTHER ==
[~2021-10-21] MED LIST changes: +LEVO500T4 PO; +MUCI1TAB16 PO
[2021-10-21 16:07] LABS: HEMATOCRIT 46.1 % (42.0-52.0); HEMOGLOBIN 15.1 g/dl (13.5-17.5); MEAN CORPUSCULAR HEMOGLOBIN 28.8 pg (27.0-33.0); MEAN CORPUSCULAR HGB CONC 32.8 g/dl (32.0-36.5); PLATELET COUNT, AUTOMATED 413 10^3/uL (150-450); RED BLOOD COUNT 5.24 10^6/uL (4.30-6.10); WHITE BLOOD COUNT 5.7 10^3/uL (4.0-10.0)
[2021-10-21 16:34] LABS: ALBUMIN 3.8 GM/DL (3.2-5.2); ALT/SGPT 124 U/L (12-78); BILIRUBIN,TOTAL 0.1 MG/DL (0.2-1.0); BLOOD UREA NITROGEN 18 MG/DL (7-18); CALCIUM LEVEL 9.1 MG/DL (8.5-10.1); CARBON DIOXIDE LEVEL 29 MEQ/L (21-32); CHLORIDE LEVEL 105 MEQ/L (98-107); CREATININE FOR GFR 1.07 MG/DL (0.70-1.30); GLOMERULAR FILTRATION RATE > 60.0 (>60); GLUCOSE, FASTING 123 MG/DL (70-100); POTASSIUM SERUM 4.7 MEQ/L (3.5-5.1); SODIUM LEVEL 140 MEQ/L (136-145); TOTAL PROTEIN 7.6 GM/DL (6.4-8.2)
[2021-10-21 16:49] LABS: ATYPICAL LYMPH 12 % (0-5); BASOPHILS 1 % (0-1); EOSINOPHILS 1 % (0-3); LYMPHOCYTES 23 % (16-44); MONOCYTES 7 % (0-5); NEUTROPHILS 56 % (28-66)
[2021-10-21 16:50] LABS: PLATELET ESTIMATE NORMAL (NORMAL)
== END ==
LOC: M SFHCCLAY 10:04
PROVIDERS: ATTEND Physician Assistant
DX: R74.8 Abnormal levels of other serum enzymes (principal)

== ENCOUNTER → 2021-11-18 | Outpatient (CLI) | payer BC | LOC: M PLAIMG 12:40 | PROVIDERS: ATTEND Physician Assistant | DX: R91.8 Other nonspecific abnormal finding of lung field (principal); R59.0 Localized enlarged lymph nodes ==

== ENCOUNTER → 2022-03-31 | Outpatient (CLI) | payer BC ==
[~2022-03-31] MED LIST changes: +BARIUM SULFATE 700 MG TABLET (E-Z-DISK) As Ordered ONE; +E-Z-PAQUE 96% w/w SUSP 176GM BTL As Ordered ONE; +VARIBAR NECTAR 40% w/v 240ML SUSP BTL As Ordered ONE; +VARIBAR PUDDING 40% w/v 230ML TUBE As Ordered ONE
== END ==
LOC: M RAD 10:28
PROVIDERS: ATTEND Otolaryngology
DX: R13.19 Other dysphagia (principal)

== ENCOUNTER → 2022-05-02 | Outpatient (CLI) | payer BC ==
[~2022-05-02] MED LIST changes: -BARIUM SULFATE 700 MG TABLET (E-Z-DISK) As Ordered ONE; -E-Z-PAQUE 96% w/w SUSP 176GM BTL As Ordered ONE; -VARIBAR NECTAR 40% w/v 240ML SUSP BTL As Ordered ONE; -VARIBAR PUDDING 40% w/v 230ML TUBE As Ordered ONE
[2022-05-02 15:37] LABS: BASO % 0.4 % (0.0-1.0); EOS # 0.1 10^3/uL (0.0-0.5); EOS % 1.8 % (0.0-3.0); HEMATOCRIT 48.9 % (42.0-52.0); HEMOGLOBIN 15.8 g/dl (13.5-17.5); LYMPH # 1.3 10^3/uL (1.5-5.0); LYMPH % 18.4 % (24.0-44.0); MEAN CORPUSCULAR HEMOGLOBIN 28.7 pg (27.0-33.0); MEAN CORPUSCULAR HGB CONC 32.3 g/dl (32.0-36.5); MEAN CORPUSCULAR VOLUME 88.7 fl (80.0-96.0); MONO # 0.5 10^3/uL (0.0-0.8); MONO % 7.3 % (2.0-8.0); NEUTROPHILS # 5.1 10^3/uL (1.5-8.5); NEUTROPHILS % 71.8 % (36.0-66.0); PLATELET COUNT, AUTOMATED 317 10^3/uL (150-450); RED BLOOD COUNT 5.51 10^6/uL (4.30-6.10); WHITE BLOOD COUNT 7.1 10^3/uL (4.0-10.0)
[2022-05-02 16:02] LABS: ALBUMIN 4.2 GM/DL (3.2-5.2); ALT/SGPT 46 U/L (12-78); BILIRUBIN,TOTAL 0.3 MG/DL (0.2-1.0); BLOOD UREA NITROGEN 18 MG/DL (7-18); CALCIUM LEVEL 9.4 MG/DL (8.5-10.1); CARBON DIOXIDE LEVEL 30 MEQ/L (21-32); CHLORIDE LEVEL 105 MEQ/L (98-107); CREATININE FOR GFR 1.21 MG/DL (0.70-1.30); GLOMERULAR FILTRATION RATE > 60.0 (>60); GLUCOSE, FASTING 99 MG/DL (70-100); POTASSIUM SERUM 5.3 MEQ/L (3.5-5.1); RHEUMATOID FACTOR QUANT < 10.0 IU/ML (<15.0); SODIUM LEVEL 138 MEQ/L (136-145); TOTAL PROTEIN 7.7 GM/DL (6.4-8.2); URIC ACID 5.4 MG/DL (3.5-7.2)
[2022-05-02 16:13] LABS: ERYTHROCYTE SEDIMENTATION RATE 3 mm/hr (0-15)
== END ==
LOC: M PLALAB 11:26
PROVIDERS: ATTEND Physician Assistant
DX: D86.9 Sarcoidosis, unspecified (principal)

== ENCOUNTER → 2022-12-14 | Outpatient (REF) | payer BC ==
[~2022-12-14] MED LIST changes: +LEVO1TAB39 PO; -LEVO500T4 PO
[2022-12-14 16:37] LABS: ALBUMIN 4.3 G/DL (3.2-5.2); ALKALINE PHOSPHATASE 76 U/L (46-116); ALT/SGPT 91 U/L (7.0-40); AST/SGOT 35 U/L (<34); BILIRUBIN,TOTAL 0.3 MG/DL (0.3-1.2); BLOOD UREA NITROGEN 19 MG/DL (9-23); CALCIUM LEVEL 9.5 MG/DL (8.5-10.1); CARBON DIOXIDE LEVEL 31 MMOL/L (20-31); CHLORIDE LEVEL 103 MMOL/L (98-107); CREATININE FOR GFR 1.01 MG/DL (0.70-1.30); GLOMERULAR FILTRATION RATE > 60.0 (>60); GLUCOSE, FASTING 94 MG/DL (60-100); POTASSIUM SERUM 4.6 MMOL/L (3.5-5.1); SODIUM LEVEL 139 MMOL/L (136-145); TOTAL PROTEIN 7.5 G/DL (5.7-8.2)
[2022-12-14 16:38] LABS: C REACTIVE PROTEIN QUANTITATIV < 0.40 MG/DL (<1.0)
[2022-12-14 16:39] LABS: BASO % 0.5 % (0.0-1.0); EOS # 0.1 10^3/uL (0.0-0.5); EOS % 3.2 % (0.0-3.0); HEMATOCRIT 47.8 % (42.0-52.0); HEMOGLOBIN 15.6 g/dl (13.5-17.5); LYMPH # 1.1 10^3/uL (1.5-5.0); LYMPH % 23.8 % (24.0-44.0); MEAN CORPUSCULAR HEMOGLOBIN 28.9 pg (27.0-33.0); MEAN CORPUSCULAR HGB CONC 32.6 g/dl (32.0-36.5); MEAN CORPUSCULAR VOLUME 88.5 fl (80.0-96.0); MONO # 0.5 10^3/uL (0.0-0.8); MONO % 11.8 % (2.0-8.0); NEUTROPHILS # 2.7 10^3/uL (1.5-8.5); NEUTROPHILS % 60.5 % (36.0-66.0); PLATELET COUNT, AUTOMATED 289 10^3/uL (150-450); WHITE BLOOD COUNT 4.4 10^3/uL (4.0-10.0)
[2022-12-14 16:40] LABS: TOTAL 25(OH) VITAMIN D 112.7 NG/ML (20.0-100.0)
[2022-12-14 16:41] LABS: AMORPHOUS SEDIMENT SMALL (NEGATIVE); APPEARANCE, URINE CLOUDY (CLEAR); BACTERIA, URINE AUTO NEGATIVE (NEGATIVE); BILIRUBIN, URINE AUTO NEGATIVE (NEGATIVE); BLOOD, URINE BLOOD NEGATIVE (NEGATIVE); COLOR, URINE YELLOW (YELLOW); GLUCOSE, URINE (UA) AUTO NEGATIVE (NEGATIVE); KETONE, URINE AUTO NEGATIVE (NEGATIVE); LEUKOCYTE ESTERASE, URINE AUTO NEGATIVE (NEGATIVE); NITRITE, URINE AUTO NEGATIVE (NEGATIVE); PROTEIN, URINE AUTO NEGATIVE (NEGATIVE); RBC, URINE AUTO 2 /HPF (0-3); SPECIFIC GRAVITY URINE AUTO 1.016 (1.002-1.035); SQUAMOUS EPITHELIAL CELL UR AU 0 /HPF (0-6); UROBILINOGEN, URINE AUTO 0.2 mg/dL (0.0-2.0); WBC, URINE AUTO 0 /HPF (0-3)
[2022-12-14 16:49] LABS: ERYTHROCYTE SEDIMENTATION RATE 18 mm/hr (0-15)
[2022-12-14 16:52] LABS: TOTAL PROTEIN,RANDOM URINE 9.2 MG/DL (0.0-14.0)
[2022-12-14 16:57] LABS: CREATININE,RANDOM URINE 90.3 MG/DL
== END ==
LOC: M SFHCRHEU 13:19
PROVIDERS: ATTEND Internal Medicine Rheumatology
DX: M25.50 Pain in unspecified joint (principal); Z86.2 Personal history of diseases of the blood and blood-forming organs and certain disorders involving the immune mechanism; H04.123 Dry eye syndrome of bilateral lacrimal glands

== ENCOUNTER → 2022-12-18 | Outpatient (CLI) | payer BC | LOC: M CLY 13:37 | PROVIDERS: ATTEND Internal Medicine Rheumatology | DX: M25.50 Pain in unspecified joint (principal); H04.123 Dry eye syndrome of bilateral lacrimal glands; Z86.2 Personal history of diseases of the blood and blood-forming organs and certain disorders involving the immune mechanism ==

== ENCOUNTER → 2023-04-05 | Outpatient (CLI) | payer BC ==
[~2023-04-05] MED LIST changes: -HYDR200T3; +HYDR200T46
== END ==
LOC: M PLALAB 13:38
PROVIDERS: ATTEND Physician Assistant
DX: S20.462A Insect bite (nonvenomous) of left back wall of thorax, initial encounter (principal); X58.XXXA Exposure to other specified factors, initial encounter; Y92.9 Unspecified place or not applicable; Y93.9 Activity, unspecified; Y99.9 Unspecified external cause status

== ENCOUNTER → 2023-08-20 | Outpatient (REF) | payer BC ==
[2023-08-20 13:02] LABS: BASO % 0.7 % (0.0-1.0); EOS # 0.2 10^3/uL (0.0-0.5); EOS % 3.8 % (0.0-3.0); HEMATOCRIT 46.3 % (42.0-52.0); HEMOGLOBIN 15.3 g/dl (13.5-17.5); LYMPH # 1.7 10^3/uL (1.5-5.0); MEAN CORPUSCULAR HEMOGLOBIN 29.2 pg (27.0-33.0); MEAN CORPUSCULAR VOLUME 88.4 fl (80.0-96.0); MONO # 0.5 10^3/uL (0.0-0.8); MONO % 11.6 % (2.0-8.0); NEUTROPHILS % 45.7 % (36.0-66.0); PLATELET COUNT, AUTOMATED 296 10^3/uL (150-450); RED BLOOD COUNT 5.24 10^6/uL (4.30-6.10); WHITE BLOOD COUNT 4.5 10^3/uL (4.0-10.0)
[2023-08-20 13:13] LABS: C REACTIVE PROTEIN QUANTITATIV < 0.40 MG/DL (<1.0)
[2023-08-20 13:14] LABS: ALBUMIN 3.9 G/DL (3.2-5.2); ALKALINE PHOSPHATASE 77 U/L (46-116); ALT/SGPT 43 U/L (7.0-40); AST/SGOT 20 U/L (<34); BILIRUBIN,TOTAL 0.2 MG/DL (0.3-1.2); BLOOD UREA NITROGEN 14 MG/DL (9-23); CALCIUM LEVEL 8.7 MG/DL (8.5-10.1); CARBON DIOXIDE LEVEL 27 MMOL/L (20-31); CHLORIDE LEVEL 107 MMOL/L (98-107); CREATININE FOR GFR 1.03 MG/DL (0.70-1.30); GLOMERULAR FILTRATION RATE > 60.0 (>60); GLUCOSE, FASTING 87 MG/DL (60-100); POTASSIUM SERUM 4.1 MMOL/L (3.5-5.1); SODIUM LEVEL 142 MMOL/L (136-145); TOTAL 25(OH) VITAMIN D 56.7 NG/ML (20.0-100.0); TOTAL PROTEIN 6.8 G/DL (5.7-8.2)
[2023-08-20 13:34] LABS: ERYTHROCYTE SEDIMENTATION RATE 9 mm/hr (0-15)
[2023-08-21 16:09] LABS: VITAMIN D 1,25 DIHYDROXY 59.9 pg/mL (24.8-81.5)
== END ==
LOC: M SFHCRHEU 09:09
PROVIDERS: ATTEND Internal Medicine Rheumatology
DX: M25.522 Pain in left elbow (principal); Z86.2 Personal history of diseases of the blood and blood-forming organs and certain disorders involving the immune mechanism; H04.123 Dry eye syndrome of bilateral lacrimal glands; M77.10 Lateral epicondylitis, unspecified elbow

== ENCOUNTER → 2023-09-17 | Outpatient (CLI) | payer BC | LOC: M SOG 07:52 | PROVIDERS: ATTEND Physician Assistant | DX: M25.521 Pain in right elbow (principal) ==

== ENCOUNTER 2023-11-29 10:11 | Day surgery (SDC) | payer BC ==
[~2023-11-29] VITALS: Ht 177.8 cm; Wt 88.9 kg
[2023-11-29] MEDS ORDERED: LR 1,000 ML IV SCH (10:25)
[2023-11-29] MEDS ORDERED: LIDOCAINE 2% 100MG/5ML SDV (FOR ANES.) As Ordered ONE (12:20)
[2023-11-29] MEDS ORDERED: fentaNYL 100 MCG/2 ML INJECTION As Ordered ONE (12:20)
[2023-11-29] MEDS ORDERED: MIDAZOLAM INJ 2MG/2ML VIAL As Ordered ONE (12:20)
[2023-11-29] MEDS ORDERED: ONDANSETRON 4MG 2ML VIAL As Ordered ONE (12:24)
[2023-11-29] MEDS ORDERED: propofoL 200 MG/20 ML VIAL As Ordered ONE (12:30)
[2023-11-29] MEDS: ceFAZolin SOD 2 GM in IV 1 EA IV ONE (13:52)
[2023-11-29] MEDS ORDERED: ACETAMINOPHEN 1000MG 100ML IV BAG As Ordered ONE (13:58)
[2023-11-29] MEDS: BACITRACIN OINTMENT 30GM TUBE As Ordered ONE (14:35)
[2023-11-29] MEDS ORDERED: OXYC1TAB23 PO (14:52)
[2023-11-29] MEDS ORDERED: ONDANSETRON 4MG 2ML VIAL IV PRN (14:55)
[2023-11-29] MEDS ORDERED: fentaNYL 100 MCG/2 ML INJECTION IV PRN (14:55)
[2023-11-29] MEDS: oxyCODONE 5MG TAB PO PRN (15:10)
[2023-11-29 16:30] VITALS: BP 107/69; TEMP 97.6; O2SAT 97
== END 2023-11-29 16:40 | disposition home or self-care (01) ==
LOC: M SDC 10:11
PROVIDERS: ATTEND Orthopaedic Surgery Hand Surgery
DX: M77.11 Lateral epicondylitis, right elbow (principal); Z87.891 Personal history of nicotine dependence
CPT/HCPCS: 24358; 88304; J0131; J0665; J0690; J1100; J2250; J2405; J3010

== ENCOUNTER → 2024-02-18 | Outpatient (REF) | payer BC ==
[~2024-02-18] MED LIST changes: +OXYC1TAB23 PO
[2024-02-18 17:25] LABS: ALBUMIN 3.9 G/DL (3.2-5.2); ALKALINE PHOSPHATASE 84 U/L (46-116); ALT/SGPT 51 U/L (7.0-40); AST/SGOT 23 U/L (<34); BILIRUBIN,DIRECT < 0.1 MG/DL (<0.4); BILIRUBIN,TOTAL 0.2 MG/DL (0.3-1.2); TOTAL PROTEIN 6.7 G/DL (5.7-8.2)
== END ==
LOC: M LABDRAWC 16:40
PROVIDERS: ATTEND Internal Medicine Gastroenterology
DX: R74.01 Elevation of levels of liver transaminase levels (principal); D86.9 Sarcoidosis, unspecified

== ENCOUNTER → 2024-03-13 | Outpatient (REF) | payer BC ==
[2024-03-13 11:49] LABS: BASO % 0.4 % (0.0-1.0); EOS # 0.1 10^3/uL (0.0-0.5); EOS % 2.5 % (0.0-3.0); HEMATOCRIT 48.4 % (42.0-52.0); HEMOGLOBIN 15.9 g/dl (13.5-17.5); LYMPH # 2.1 10^3/uL (1.5-5.0); LYMPH % 37.6 % (24.0-44.0); MEAN CORPUSCULAR HEMOGLOBIN 29.1 pg (27.0-33.0); MEAN CORPUSCULAR HGB CONC 32.9 g/dl (32.0-36.5); MEAN CORPUSCULAR VOLUME 88.6 fl (80.0-96.0); MONO # 0.6 10^3/uL (0.0-0.8); MONO % 10.2 % (2.0-8.0); NEUTROPHILS # 2.7 10^3/uL (1.5-8.5); NEUTROPHILS % 49.1 % (36.0-66.0); PLATELET COUNT, AUTOMATED 283 10^3/uL (150-450); RED BLOOD COUNT 5.46 10^6/uL (4.30-6.10); WHITE BLOOD COUNT 5.6 10^3/uL (4.0-10.0)
[2024-03-13 11:53] LABS: INR 1.13; PROTHROMBIN TIME 14.1 SECONDS (12.5-14.5)
== END ==
LOC: M LABDRAWC 10:42
PROVIDERS: ATTEND Internal Medicine Gastroenterology
DX: R74.01 Elevation of levels of liver transaminase levels (principal)

== ENCOUNTER → 2024-03-14 | Outpatient (CLI) | payer BC, OTHER ==
[~2024-03-14] MED LIST changes: +LIDOCAINE 1% MDV 20ML VIAL As Ordered ONE
[2024-03-14 13:27] VITALS: TEMP 98.6
[2024-03-14 15:50] VITALS: BP 126/63; O2SAT 97
== END ==
LOC: M IRPRO 13:17
PROVIDERS: ATTEND Internal Medicine Gastroenterology
DX: R74.01 Elevation of levels of liver transaminase levels (principal); K73.9 Chronic hepatitis, unspecified

== ENCOUNTER → 2024-08-19 | Outpatient (REF) | payer BC, OTHER ==
[~2024-08-19] MED LIST changes: -LIDOCAINE 1% MDV 20ML VIAL As Ordered ONE
[2024-08-19 19:06] LABS: BASO % 0.5 % (0.0-1.0); EOS # 0.1 10^3/uL (0.0-0.5); EOS % 1.1 % (0.0-3.0); HEMATOCRIT 46.5 % (42.0-52.0); HEMOGLOBIN 15.4 g/dl (13.5-17.5); LYMPH # 1.7 10^3/uL (1.5-5.0); LYMPH % 30.3 % (24.0-44.0); MEAN CORPUSCULAR HGB CONC 33.1 g/dl (32.0-36.5); MEAN CORPUSCULAR VOLUME 87.6 fl (80.0-96.0); MONO # 0.5 10^3/uL (0.0-0.8); MONO % 8.3 % (2.0-8.0); NEUTROPHILS # 3.4 10^3/uL (1.5-8.5); NEUTROPHILS % 59.6 % (36.0-66.0); PLATELET COUNT, AUTOMATED 314 10^3/uL (150-450); RED BLOOD COUNT 5.31 10^6/uL (4.30-6.10); WHITE BLOOD COUNT 5.7 10^3/uL (4.0-10.0)
[2024-08-19 19:09] LABS: C REACTIVE PROTEIN QUANTITATIV < 0.40 MG/DL (<1.0)
[2024-08-19 19:11] LABS: ALBUMIN 4.2 G/DL (3.2-5.2); ALKALINE PHOSPHATASE 87 U/L (40-129); ALT/SGPT 63 U/L (7.0-40); AST/SGOT 22 U/L (<34); BILIRUBIN,TOTAL 0.3 MG/DL (0.3-1.2); BLOOD UREA NITROGEN 18 MG/DL (9-23); CALCIUM LEVEL 9.7 MG/DL (8.5-10.1); CARBON DIOXIDE LEVEL 28 MMOL/L (20-31); CHLORIDE LEVEL 103 MMOL/L (98-107); CREATININE FOR GFR 1.11 MG/DL (0.70-1.30); GLOMERULAR FILTRATION RATE > 60.0 (>60); GLUCOSE, FASTING 89 MG/DL (60-100); SODIUM LEVEL 136 MMOL/L (136-145); TOTAL PROTEIN 7.7 G/DL (5.7-8.2)
[2024-08-19 19:13] LABS: ERYTHROCYTE SEDIMENTATION RATE 20 mm/hr (0-15)
== END ==
LOC: M SFHCCLAY 14:44
PROVIDERS: ATTEND Internal Medicine Rheumatology
DX: M25.50 Pain in unspecified joint (principal); Z86.2 Personal history of diseases of the blood and blood-forming organs and certain disorders involving the immune mechanism; H04.123 Dry eye syndrome of bilateral lacrimal glands

== ENCOUNTER → 2024-08-19 | Outpatient (CLI) | payer BC, OTHER | LOC: M CLY 14:49 | PROVIDERS: ATTEND Internal Medicine Rheumatology | DX: M54.50 Low back pain, unspecified (principal); Z86.2 Personal history of diseases of the blood and blood-forming organs and certain disorders involving the immune mechanism; H04.123 Dry eye syndrome of bilateral lacrimal glands; R79.89 Other specified abnormal findings of blood chemistry; M77.10 Lateral epicondylitis, unspecified elbow ==

== ENCOUNTER → 2024-08-28 | Outpatient (REF) | payer BC, OTHER ==
[2024-08-28 17:29] LABS: ALKALINE PHOSPHATASE 81 U/L (40-129); ALT/SGPT 77 U/L (7.0-40); AST/SGOT 30 U/L (<34); BILIRUBIN,TOTAL 0.4 MG/DL (0.3-1.2); BLOOD UREA NITROGEN 20 MG/DL (9-23); CALCIUM LEVEL 9.5 MG/DL (8.5-10.1); CARBON DIOXIDE LEVEL 31 MMOL/L (20-31); CHLORIDE LEVEL 104 MMOL/L (98-107); CREATININE FOR GFR 1.04 MG/DL (0.70-1.30); GLOMERULAR FILTRATION RATE > 60.0 (>60); GLUCOSE, FASTING 94 MG/DL (60-100); POTASSIUM SERUM 4.8 MMOL/L (3.5-5.1); SODIUM LEVEL 139 MMOL/L (136-145); TOTAL PROTEIN 7.5 G/DL (5.7-8.2)
== END ==
LOC: M SFHCPLAZ 09:30
PROVIDERS: ATTEND Family Medicine
DX: Z13.6 Encounter for screening for cardiovascular disorders (principal)

== ENCOUNTER → 2024-09-18 | Outpatient (CLI) | payer BC, OTHER | LOC: M SOG 07:49 | PROVIDERS: ATTEND Physician Assistant | DX: M25.511 Pain in right shoulder (principal); M25.512 Pain in left shoulder ==

== ENCOUNTER → 2025-01-16 | Outpatient (REF) | payer BC, OTHER ==
[2025-01-16 17:48] LABS: BASO % 0.8 % (0.0-1.0); EOS # 0.1 10^3/uL (0.0-0.5); EOS % 3.2 % (0.0-3.0); HEMATOCRIT 47.1 % (42.0-52.0); HEMOGLOBIN 15.5 g/dl (13.5-17.5); LYMPH # 1.7 10^3/uL (1.5-5.0); LYMPH % 45.4 % (24.0-44.0); MEAN CORPUSCULAR HGB CONC 32.9 g/dl (32.0-36.5); MONO # 0.5 10^3/uL (0.0-0.8); MONO % 12.9 % (2.0-8.0); NEUTROPHILS # 1.4 10^3/uL (1.5-8.5); NEUTROPHILS % 37.7 % (36.0-66.0); PLATELET COUNT, AUTOMATED 283 10^3/uL (150-450); RED BLOOD COUNT 5.35 10^6/uL (4.30-6.10); WHITE BLOOD COUNT 3.7 10^3/uL (4.0-10.0)
[2025-01-16 18:04] LABS: ERYTHROCYTE SEDIMENTATION RATE 16 mm/hr (0-15)
[2025-01-16 18:14] LABS: ALBUMIN 4.2 G/DL (3.2-5.2); ALKALINE PHOSPHATASE 85 U/L (40-129); ALT/SGPT 92 U/L (7.0-40); AST/SGOT 51 U/L (<34); BILIRUBIN,TOTAL 0.3 MG/DL (0.3-1.2); BLOOD UREA NITROGEN 21 MG/DL (9-23); C REACTIVE PROTEIN QUANTITATIV < 0.50 MG/DL (<1.0); CALCIUM LEVEL 9.2 MG/DL (8.5-10.1); CARBON DIOXIDE LEVEL 30 MMOL/L (20-31); CHLORIDE LEVEL 106 MMOL/L (98-107); CREATININE FOR GFR 1.11 MG/DL (0.70-1.30); GLOMERULAR FILTRATION RATE > 60.0 (>60); GLUCOSE, FASTING 93 MG/DL (60-100); POTASSIUM SERUM 4.9 MMOL/L (3.5-5.1); SODIUM LEVEL 142 MMOL/L (136-145); TOTAL PROTEIN 7.4 G/DL (5.7-8.2)
[2025-01-16 18:16] LABS: TOTAL 25(OH) VITAMIN D 69.6 NG/ML (20.0-100.0)
== END ==
LOC: M SFHCCLAY 09:26
PROVIDERS: ATTEND Internal Medicine Rheumatology
DX: M25.50 Pain in unspecified joint (principal); Z86.2 Personal history of diseases of the blood and blood-forming organs and certain disorders involving the immune mechanism; H04.123 Dry eye syndrome of bilateral lacrimal glands

== ENCOUNTER → 2025-05-20 | Outpatient (CLI) | payer BC ==
[~2025-05-20] MED LIST changes: -FLOM0.4C39 PO; +TAMS-18 PO
== END ==
LOC: M CLY 08:36
PROVIDERS: ATTEND Internal Medicine Rheumatology
DX: M25.50 Pain in unspecified joint (principal)

== ENCOUNTER → 2025-07-09 | Outpatient (REF) | payer BC, OTHER ==
[2025-07-09 18:51] LABS: BASO # 0.0 10^3/uL (0.0-0.2); BASO % 0.4 % (0.0-1.0); EOS # 0.1 10^3/uL (0.0-0.5); EOS % 2.0 % (0.0-3.0); LYMPH # 1.8 10^3/uL (1.5-5.0); LYMPH % 40.6 % (24.0-44.0); MONO # 0.6 10^3/uL (0.0-0.8); MONO % 13.2 % (2.0-8.0); NEUTROPHILS # 1.9 10^3/uL (1.5-8.5); NEUTROPHILS % 43.6 % (36.0-66.0); PLATELET COUNT, AUTOMATED 345 10^3/uL (150-450)
[2025-07-09 18:56] LABS: ALT/SGPT 45 U/L (7.0-40); AST/SGOT 26 U/L (<34); C REACTIVE PROTEIN QUANTITATIV < 0.50 MG/DL (<1.0); CALCIUM LEVEL 9.6 MG/DL (8.5-10.1); CARBON DIOXIDE LEVEL 28 MMOL/L (20-31); CHLORIDE LEVEL 105 MMOL/L (98-107); CREATININE FOR GFR 1.13 MG/DL (0.70-1.30); GLOMERULAR FILTRATION RATE 84.8 (>60); POTASSIUM SERUM 4.3 MMOL/L (3.5-5.1); SODIUM LEVEL 138 MMOL/L (136-145)
[2025-07-09 19:02] LABS: ERYTHROCYTE SEDIMENTATION RATE 16 mm/hr (0-15)
== END ==
LOC: M SFHCCLAY 10:50
PROVIDERS: ATTEND Internal Medicine Rheumatology
DX: M25.50 Pain in unspecified joint (principal)

== ENCOUNTER 2025-08-04 12:15 | Day surgery (SDC) | payer BC ==
[~2025-08-04] VITALS: Ht 177.8 cm; Wt 91.7 kg
[~2025-08-04 12:15] MED LIST changes: +SULF500T2 PO
[2025-08-04] MEDS ORDERED: LR 1,000 ML IV SCH ×2 (12:35→17:05)
[2025-08-04] MEDS ORDERED: dexAMETHasone 10 MG/1 ML VIAL PRES.FREE PN ONE (12:35)
[2025-08-04] MEDS ORDERED: dexAMETHasone 4 MG/ML 1 ML VIAL As Ordered ONE (13:42)
[2025-08-04] MEDS ORDERED: dexmedeTOMIDine (4 MCG/ML) 200 MCG/50 ML BTL As Ordered ONE (13:42)
[2025-08-04] MEDS ORDERED: ROCURONIUM BROMIDE 50MG/5ML VIAL As Ordered ONE (13:42)
[2025-08-04] MEDS ORDERED: LIDOCAINE 2% 100 MG/5 ML SDV (FOR ANES.) As Ordered ONE (13:42)
[2025-08-04] MEDS ORDERED: ONDANSETRON 4MG/2ML VIAL As Ordered ONE (13:42)
[2025-08-04] MEDS ORDERED: MIDAZOLAM INJ 2 MG/2 ML VIAL As Ordered ONE (13:48)
[2025-08-04] MEDS: MIDAZOLAM INJ 2 MG/2 ML VIAL IV PRN (14:18)
[2025-08-04] MEDS ORDERED: SUGAMMADEX SODIUM 200 MG/2 ML VIAL As Ordered ONE (14:26)
[2025-08-04] MEDS: LIDOCAINE 1% SDV 5 ML VIAL PN ONE (14:34)
[2025-08-04] MEDS: EPINEPHrine INJ 1 MG/ML 1ML AMP PN STA (14:34)
[2025-08-04] MEDS: ROPIvacaine 0.5% 30ML VIAL PN ONE (14:34)
[2025-08-04] MEDS: TRANEXAMIC ACID 100 MG/ML 10ML VIAL As Ordered ONE (15:05)
[2025-08-04] MEDS ORDERED: ceFAZolin SOD 2 GM IV ONCE IV ONE (15:05)
[2025-08-04] MEDS: EPINEPHrine 1 MG/ML INJ 30 ML MD-VIAL As Ordered ONE (16:40)
[2025-08-04] MEDS: LIDOCAINE W/EPINEPHrine 1% 20 ML VIAL As Ordered ONE (16:42)
[2025-08-04] MEDS ORDERED: HYDROMORPHONE HCL 0.5 MG/0.5 ML SYRINGE IV PRN (17:05)
[2025-08-04] MEDS: ACETAMINOPHEN *IV* 1,000 MG in IV 1 EA IV ONE (17:39)
[2025-08-04] MEDS: ONDANSETRON 4MG/2ML VIAL IV PRN (17:50)
[2025-08-04 18:05] VITALS: BP 112/67; TEMP 96.8; O2SAT 98
== END 2025-08-04 18:21 | disposition home or self-care (01) ==
LOC: M SDC 12:15
PROVIDERS: ATTEND Neuromusculoskeletal Medicine, Sports Medicine
DX: M75.121 Complete rotator cuff tear or rupture of right shoulder, not specified as traumatic (principal); M19.011 Primary osteoarthritis, right shoulder; M75.81 Other shoulder lesions, right shoulder; Z90.49 Acquired absence of other specified parts of digestive tract
CPT/HCPCS: 29824; 29826; 29827; C1713; J0131; J0165; J0166; J0688; J1100; J2250; J2405; J2795; J3010